=== PATIENT | female | born 1980 | race Caucasian/White ===

== ENCOUNTER 2021-12-12 10:20 | Emergency (ER) | payer OTHER ==
[2021-12-12] MEDS ORDERED: HYDROmorphone 0.5 MG/0.5 ML Syringe ONE (10:52)
[2021-12-12] MEDS ORDERED: Acetaminophen/oxyCODONE 325-5 MG Tab ONE (10:52)
[2021-12-12] MEDS ORDERED: Diphtheria,Pertussis(Acell),Tetanus Vaccine 0.5 ML Syringe IM ONE (10:54)
[2022-01-06 14:26] LABS: ESTIMATED GFR 83 mL/min (>60)
== END 2021-12-12 12:50 | disposition home or self-care (01) ==
LOC: JP.ED 10:20
DX: R07.89 Other chest pain (principal); M54.2 Cervicalgia; Z23 Encounter for immunization
CPT/HCPCS: 36415; 71046; 71100; 72125; 80053; 81025; 82947; 85027; 90471; 90715; 96372; 99284; A9270; J1170; 99283